=== PATIENT | male | born 1965 | race Caucasian/White ===

== ENCOUNTER 2017-01-12 14:14 | Emergency (ER) | payer BC ==
[~2017-01-12] VITALS: Ht 180.3 cm; Wt 77.1 kg
[2017-01-12 14:58] VITALS: BP 181/98
[2017-01-12] MEDS ORDERED: LIDOCAINE 1% / SOD BICARB 8.4% 20 ML VIAL. IJ ONE (15:30)
--- NOTE | 2017-01-12 15:30 | PHYS DOC ---
Past Medical History Past Medical History: Arrhythmia, Hypertension Past Surgical History: No Surgical History Alcohol Use: None Drug Use: None Adult General Chief Complaint Chief Complaint: ANIMAL BITE [facility] HPI Patient is a 51 year old male who presents with a dog bite and contusion to the right elbow. The patient was outside raking leaves when the next door neighbor's to dogs came into his yard. He was trying to shoo the dogs back into his neighbors yard when the smaller dog grabbed a hold of his pants leg pulling him down. He then felt what he described as being hit by a baseball bat in his right arm and realized that the larger dog had bit him. They did get in the car and immediately presented to the emergency department. He has not taken any medication for this wound. He did have a tetanus vaccine in 2013. Animal control did call back to the ED and confirmed that the dogs are both covered for all their vaccinations including rabies. Review of Systems Review of Systems Constitutional: Denies fever or chills [] Respiratory: Denies cough or shortness of breath [] Cardiovascular: No additional information not addressed in HPI [] Musculoskeletal: See history of present illness Integument: See history of present illness Neurologic: Denies headache, focal weakness or sensory changes [] Endocrine: Denies polyuria or polydipsia [] All other systems were reviewed and found to be within normal limits, except as documented in this note. Current Medications Current Medications Current Medications Medications (Trade) Dose Ordered Sig/[facility] Start Time Stop Time Status Last Admin Dose Admin Lidocaine/Sodium Bicarbonate (Buffered Lidocaine 1%) 20 ml 1X ONCE 01/12/17 15:30 01/12/17 15:33 DC Allergies Allergies Allergies Coded Allergies Type Severity Reaction Last Updated Verified No Known Drug Allergies 01/12/17 No Physical Exam Physical Exam Constitutional: Well developed, well nourished, no acute distress, non-toxic appearance. [] Neck: Normal range of motion, no tenderness, supple, no stridor. [] Cardiovascular:Heart rate regular rhythm, no murmur [] Lungs & Thorax: Bilateral breath sounds clear to auscultation [] Skin: Patient has an approximately 2 cm laceration to his right arm just proximal to the elbow, the laceration is gaping Back: No tenderness, no CVA tenderness. [] Extremities: ROM intact, there is a 2 and half centimeter in diameter contusion over the right elbow where the patient impacted on the ground, pulses and sensation are intact distal to injury Neurologic: Alert and oriented X 3, normal motor function, normal sensory function, no focal deficits noted. [] Psychologic: Affect normal, judgement normal, mood normal. [] Current Patient Data Vital Signs Vital Signs Date Time Temp Pulse Resp B/P (MAP) Pulse Ox O2 Delivery O2 Flow Rate FiO2 01/12/17 14:58 97.9 75 16 99 Room Air 97.9 EKG EKG [] Radiology/Procedures Radiology/Procedures [] Procedure: Laceration repair Indications: 2 cm gaping laceration to the right upper arm from a dog bite Patient consent: The procedure and risks were explained in detail. Questions were encouraged and answered. Anesthesia: 1% buffered lidocaine Description of procedure: Following soaking, the area was prepped and draped using sterile techniques. Wound was vigorously cleansed with antiseptic solution. Local infiltration with 1% buffered lidocaine was well-tolerated. Nonabsorbable suture material was used. A sterile dressing was applied. Number of stitches: 6 Patient tolerated the procedure well Complications: None Estimated blood loss: 20 ml Disposition wound care instructions were given patient discharged home follow- up with primary care provider in 7-10 days. Course & Med Decision Making Course & Med Decision Making Pertinent Labs and Imaging studies reviewed. (See chart for details) []1. Dog bite 2. Contusion 3. Laceration The patient did have a current tetanus shot. He was placed on Augmentin for 10 days. He was given instructions to have sutures removed in 7-10 days or to return to the ED if worsening. Dragon Disclaimer Dragon Disclaimer This electronic medical record was generated, in whole or in part, using a voice recognition dictation system. Departure Departure Referrals: BRANDEN MAGANA MD (PCP) Scripts Hydrocodone/Apap 5-325 (NORCO 5-325 TABLET) 1 Each Tablet 1-2 TAB PO Q4-6HRS, #10 TAB Prov: DUNIA FORD APRN 01/12/17 Amoxicillin/Potassium Clav (AUGMENTIN 875-125 TABLET) 1 Each Tablet 1 TAB PO BID, #20 TAB Prov: DUNIA FORD APRN 01/12/17 DUNIA FORD APRN Jan 12, 2017 15:30
--- NOTE | 2017-01-12 15:48 | RAD ---
3 views right elbow 01/12/2017 5:19 PM Indication: fell during dog attack, pain in elbow Comparison: None Findings: There is no fracture or dislocation identified. Articular surfaces are uninterrupted. Soft tissues are unremarkable. Impression: No evidence of acute osseous abnormality
[2017-01-12] MEDS ORDERED: AMOX1TAB61 PO (17:04)
[2017-01-12] MEDS ORDERED: HYDR-971 PO (17:07)
== END 2017-01-12 17:23 | disposition home or self-care (01) ==
LOC: ER 14:14
DX: S41.111A Laceration without foreign body of right upper arm, initial encounter (principal); S50.01XA Contusion of right elbow, initial encounter; I10 Essential (primary) hypertension; W54.0XXA Bitten by dog, initial encounter; W21.11XA Struck by baseball bat, initial encounter; Y93.89 Activity, other specified; Y99.8 Other external cause status; Y92.89 Other specified places as the place of occurrence of the external cause
CPT/HCPCS: 12001; 73080; 99284-25

== ENCOUNTER → 2017-02-26 | Outpatient (CLI) | payer OTHER ==
[2017-02-26] MEDS: REGADENOSON 0.4 MG/5 ML DISP.SYRIN. IV (12:03)
== END | disposition home or self-care (01) ==
LOC: NM 10:08
DX: R07.9 Chest pain, unspecified (principal); R00.2 Palpitations; I10 Essential (primary) hypertension
CPT/HCPCS: 78452; 93017; 93225; 93306; 96374; 96375; 96376; A9500; J2785

== ENCOUNTER 2017-03-13 18:06 | Emergency (ER) | payer OTHER ==
[2017-03-13 18:50] LABS: ANION GAP 10 (6-14); BLOOD UREA NITROGEN 23 mg/dL (8-26); CALCIUM 9.3 mg/dL (8.5-10.1); CARBON DIOXIDE 26 mmol/L (21-32); CHLORIDE 102 mmol/L (98-107); CREATININE 1.1 mg/dL (0.7-1.3); GLUCOSE 104 mg/dL (70-99); POTASSIUM 3.6 mmol/L (3.5-5.1); SODIUM 138 mmol/L (136-145)
== END 2017-03-13 19:25 | disposition home or self-care (01) ==
LOC: ER 18:06
DX: E87.5 Hyperkalemia (principal); I10 Essential (primary) hypertension; F10.10 Alcohol abuse, uncomplicated
CPT/HCPCS: 36415; 80048; 93005; 99285-25